=== PATIENT | female | born 1935 | race Caucasian/White ===

== ENCOUNTER 2016-12-11 19:04 | Emergency (ER) | payer MEDICARE, BC ==
[~2016-12-11 19:04] MED LIST: ACIPHEX PO; AMB10 PO; AMB5 PO; ASAB PO; BETAPACE80 PO; BUSPAR10 PO; CELEXA20 PO; CENTRUM TAB1 TAB PO; CIP2 PO; COREG12 PO; D.O.S.100 MG PO; ELIQUIS 5 MG TAB5 MG PO; ESTRACE0.5 MG PO; LAN125 PO; LEVOTHYROXIN25 MCG PO; LISINOPRIL40 MG PO; MELATONIN5 M1 PO; MULTIPLE VIT PO; NEUR100 PO; PRIN20 PO; PROBIOTIC PO; PROZAC PO; REFRESH OPH SO0.3 ML OPH; SEPTRA SUSPENS100 ML PO; SYN.025B PO; SYSTANE OPH; TRIDERM0.1 % TOP; VITAMIN D2000 UNIT PO; VITAMIN D31000 UNIT PO; XARELTO20 MG PO
[2016-12-11 19:28] LABS: BASOPHILS 0.6 %; BASOPHILS ABSOLUTE 0.05 10/3/uL (0.0-0.16); EOSINOPHILS 1.6 %; EOSINOPHILS ABSOLUTE 0.13 10/3/uL (0.0-0.53); ER CBC TAT 0 Hrs 07 Mins; HEMATOCRIT 33.7 % (36.0-48.0); HEMOGLOBIN 11.2 g/dL (12.0-16.0); IMMATURE GRANULOCYTES 0.1 %; IMMATURE GRANULOCYTES ABSOLUTE 0.01 10/3/uL (0.0-0.11); LYMPHOCYTES ABSOLUTE 2.29 10/3/uL (0.67-4.30); MANUAL DIFF NO %; MEAN CORPUS HGB CONC 33.2 g/dL (32.0-36.0); MEAN CORPUSCULAR VOLUME 81.2 fL (80-100); MEAN PLATELET VOLUME 9.9 fL (9.2-13.0); MONOCYTES 10.3 %; MONOCYTES ABSOLUTE 0.84 10/3/uL (0.21-1.20); NEUTROPHILS 59.4 %; NEUTROPHILS ABSOLUTE 4.87 10/3/uL (2.02-8.40); PLATELET COUNT 313 10/3/uL (150-400); RBC DISTRIBUTION WIDTH 13.8 % (12.0-16.0); RED CELL COUNT 4.15 10/6/uL (4.0-5.6); WHITE BLOOD CELLS 8.2 10/3/uL (4.5-10.5)
[2016-12-11 19:35] LABS: INTERNATIONAL NORMAL RATI 1.1 UNITS (-); PARTIAL THROMBO TIME 31.5 SEC (22.5-37.2); PROTIME (NOT ORD) 13.7 SEC (12.0-14.5)
[2016-12-11 19:44] LABS: CALCIUM, SERUM 8.6 MG/DL (8.5-10.4); CHEST PAIN PROFILE TAT 0 Hrs 23 Mins; CHLORIDE, SERUM 105 MMOL/L (96-112); CO2 (CARBON DIOXIDE) 26 MMOL/L (24-34); CREATININE 0.88 MG/DL (0.55-1.02); GFR AFRICAN AMERICAN 70 ML/MIN (>=60); GFR NON AFRICAN AMERICAN 61 ML/MIN (>=60); GLUCOSE, SERUM 106 MG/DL (60-99); POTASSIUM, SERUM 4.3 MMOL/L (3.5-5.3); SODIUM, SERUM 141 MMOL/L (135-148); TROPONIN I <0.02 NG/ML (<0.05)
[2016-12-11 19:45] LABS: BUN (BLOOD UREA NITROGEN) 23 MG/DL (6-23)
[2016-12-12] MEDS ORDERED: MULTIVITAMI1 PO (15:32)
[2016-12-12] MEDS ORDERED: KDUR10 PO (15:35)
[2016-12-12] MEDS ORDERED: L20 PO (15:36)
[2016-12-12] MEDS ORDERED: CELEXA20 PO (15:37)
== END 2016-12-11 23:06 | disposition home or self-care (01) ==
LOC: ER 19:04
PROVIDERS: Emergency Medicine
DX: I48.91 Unspecified atrial fibrillation (principal); I10 Essential (primary) hypertension; I25.2 Old myocardial infarction; K21.9 Gastro-esophageal reflux disease without esophagitis; Z79.899 Other long term (current) drug therapy
CPT/HCPCS: 71020; 80048; 83735; 84484; 85025; 85610; 85730; 93005; 96374; 99291